=== PATIENT | male | born 1990 | race Two or more races ===

== ENCOUNTER 2023-08-05 22:32 | Emergency (ER) | payer OTHER ==
[~2023-08-05] VITALS: Ht 185.4 cm; Wt 75.8 kg
[2023-08-06 01:10] VITALS: BP 141/80; PULSE 90; RESP 20; TEMP 97.6; O2SAT 99
[2023-08-06] MEDS: TETANUS-DIPTH-ACEL PERTUSSIS 0.5ML SYR Tdap IM ONE (01:39)
== END 2023-08-06 01:44 | disposition home or self-care (01) ==
LOC: ER 22:32
DX: S61.211A Laceration without foreign body of left index finger without damage to nail, initial encounter (principal); W26.0XXA Contact with knife, initial encounter; Y93.89 Activity, other specified; Y92.89 Other specified places as the place of occurrence of the external cause; Y99.8 Other external cause status
CPT/HCPCS: 12001; 90471; 90715